=== PATIENT | female | born 1965 | race Caucasian/White ===

== ENCOUNTER 2018-06-23 10:57 | Emergency (ER) | payer BC ==
[2018-06-23] MEDS: ONDANSETRON (ODT) 4 MG TAB ODT (11:46)
[2018-06-23] MEDS: ACETAMINOPHEN 325 MG TAB PO (11:46)
[2018-06-23 11:47] LABS: URINE BLOOD (Dip) POC Negative (NEGATIVE); URINE GLUCOSE (Dip) POC Negative (NEGATIVE); URINE KETONES (Dip) POC Negative (NEGATIVE); URINE LEUKOCYTE EST (Dip) POC Negative (NEGATIVE); URINE NITRITE (Dip) POC Negative (NEGATIVE); URINE TOTAL PROTEIN POC Negative (NEGATIVE)
[2018-06-23 11:47] LABS: URINE PH (Dip) POC 7.5 (5.0-8.5)
[2018-06-23] MEDS: KETOROLAC 30 MG INJ IM (12:59)
== END 2018-06-23 13:06 | disposition home or self-care (01) ==
LOC: FTE 10:57
DX: R51 Headache (principal)
CPT/HCPCS: 70450; 81003; 81025; 96372; 99285-25

== ENCOUNTER 2018-07-27 08:18 | Emergency (ER) | payer BC ==
[2018-07-27] MEDS: KETOROLAC 30 MG INJ IM (09:50)
== END 2018-07-27 09:55 | disposition home or self-care (01) ==
LOC: FTE 08:18
DX: M79.642 Pain in left hand (principal); J06.9 Acute upper respiratory infection, unspecified
CPT/HCPCS: 96372; 99284-25; J1885